=== PATIENT | male | born 1985 | race Caucasian/White ===

== ENCOUNTER 2016-05-25 17:49 | Emergency (ER) | payer BC ==
[2016-05-25 18:15] VITALS: BP 150/78
[2016-05-25] MEDS ORDERED: Benzocaine 20% Topical Spray UD MUCMEM ONE (18:29)
[2016-05-25] MEDS ORDERED: Lidocaine 2% Viscous Solution 15 ML Cup PO ONE (18:29)
--- NOTE | 2016-05-25 18:33 | EDM.PDOC ---
ED HPI GENERAL MEDICAL PROBLEM - General Chief Complaint: ENT Problem Stated Complaint: PT HAS TOOTHACHE Time Seen by Provider: 05/25/16 17:53 - History of Present Illness INITIAL COMMENTS - FREE TEXT/NARRATIVE: HISTORY AND PHYSICAL: History of present illness: The patient is a 30-year-old male with a history of asthma who presents with complaints of swelling of his right jaw and dental pain that has been going on for the last couple of days. The patient has a known dental problem there has been putting off getting that particular tooth fixed as he has been working on other teeth with a local dentist. He has appointment with his dentist in 2 weeks and he was doing well until this morning he woke up and it was terribly swollen. He was concerned about infection so he took some leftover penicillin that he had. Concerned about pain management. He has had no fever chills chest pain sore throat or shortness of breath or Review of systems: As per history of present illness and below otherwise all systems reviewed and negative. Past medical history: As per history of present illness and as reviewed below otherwise noncontributory. Surgical history: As per history of present illness and as reviewed below otherwise noncontributory. Social history: No reported history of drug or alcohol abuse. Family history: As per history of present illness and as reviewed below otherwise noncontributory. Physical exam: General: Well-developed well-nourished male who is nontoxic and speaking clearly and easily. Is visible swelling of the right side of his jaw. HEENT: Atraumatic, normocephalic, pupils reactive, negative for conjunctival pallor or scleral icterus, mucous membranes moist, throat clear, neck supple, nontender, trachea midline. There are several areas of dental disease the most noteworthy is in the premolar area on the lower right where there is a dental caries with some swelling in the surrounding but no fluctuance and there is tenderness in this region Lungs: Clear to auscultation with a fine expiratory wheeze appreciated bilaterally, breath sounds equal bilaterally, chest nontender. Heart: S1S2, regular rate and rhythm no overt murmurs. Abdomen: Soft, nondistended, nontender. NABS Genitourinary: Deferred. Rectal: Deferred. Extremities: Atraumatic, negative for cords or calf pain. Neurovascular unremarkable. Neuro: Awake, alert, oriented. Cranial nerves II through XII unremarkable. Cerebellum unremarkable. Motor and sensory unremarkable throughout. Exam nonfocal. Diagnostics: [] Therapeutics: Dental balls The patient states he has an inhaler at home and does not want the fine wheeze to be addressed here in the ER Impression: Dental pain/caries/early abscess Definitive disposition and diagnosis as appropriate pending reevaluation and review of above. Right Lower Tooth/Teeth Pain Score (Numeric/FACES): 7 - Related Data Allergies Allergy/AdvReac Type Severity Reaction Status Date / Time No Known Allergies Allergy Verified 05/25/16 18:15 Home Meds: Home Meds . [No Known Home Meds] 08/31/15 [History] Past Medical History - Past Health History Medical/Surgical History: Denies Medical/Surgical History - Infectious Disease History Infectious Disease History: Reports: Chicken pox Social & Family History - Family History Family Medical History: Noncontributory - Tobacco Use Smoking Status *Q: Current Every Day Smoker Years of Tobacco use: 10 Packs/Tins Daily: 1 Second Hand Smoke Exposure: Yes - Caffeine Use Caffeine Use: Reports: Energy drinks - Recreational Drug Use Recreational Drug Use: No ED ROS GENERAL - Review of Systems Review Of Systems: ROS reveals no pertinent complaints other than HPI. ED EXAM, GENERAL - Physical Exam Exam: See Below (See dictation) Course - Vital Signs Last Recorded V/S: Last Vital Signs Temp 36.4 C 05/25/16 18:13 Pulse 94 05/25/16 18:13 Resp 16 05/25/16 18:13 BP 150/78 H 05/25/16 18:13 Pulse Ox 94 L 05/25/16 18:13 - Orders/Labs/Meds Meds: Medications Discontinued Medications Generic Name Dose Route Start Last Admin Trade Name Kyle PRN Reason Stop Dose Admin Benzocaine 2 each 05/25/16 18:29 Hurricaine One 20% MUCMEM 05/25/16 18:30 ONETIME ONE Lidocaine HCl 15 ml 05/25/16 18:29 Xylocaine 2% Viscous PO 05/25/16 18:30 ONETIME ONE Departure - Departure Time of Disposition: 18:33 Disposition: Home, Self-Care 01 Condition: good Clinical Impression: Dental abscess, Dental caries extending into dentin Forms: ED Department Discharge Additional Instructions: The following information is given to patients seen in the emergency department who are being discharged to home. This information is to outline your options for follow-up care. We provide all patients seen in our emergency department with a follow-up referral. The need for follow-up, as well as the timing and circumstances, are variable depending upon the specifics of your emergency department visit. If you don't have a primary care physician on staff, we will provide you with a referral. We always advise you to contact your personal physician following an emergency department visit to inform them of the circumstance of the visit and for follow-up with them and/or the need for any referrals to a consulting specialist. The emergency department will also refer you to a specialist when appropriate. This referral assures that you have the opportunity for followup care with a specialist. All of these measure are taken in an effort to provide you with optimal care, which includes your followup. Under all circumstances we always encourage you to contact your private physician who remains a resource for coordinating your care. When calling for followup care, please make the office aware that this follow-up is from your recent emergency room visit. If for any reason you are refused follow-up, please contact the [facility] emergency department at and ask to speak to the emergency department charge nurse. [facility] Primary care- Internal Medicine and Family [address] [address] Please followup with your dentist as scheduled and apply ice to face to help with the swelling. Please use antibiotics and pain meds as directed and prescribed. Please use the dental balls were given here in the ER as shown 2 by nursing and return to ER as needed and as discussed.
== END 2016-05-25 18:50 | disposition home or self-care (01) ==
LOC: MW.ED 17:49
DX: K04.7 Periapical abscess without sinus (principal); K02.9 Dental caries, unspecified; F17.210 Nicotine dependence, cigarettes, uncomplicated
CPT/HCPCS: 99282; A9270

== ENCOUNTER 2024-08-21 03:00 | Emergency (ER) | payer BC ==
[2024-08-21 03:09] VITALS: BP 140/97; PULSE 104
[2024-08-21] MEDS: Ketorolac 30 MG/ML SDV IM ONE (03:38)
[2024-08-21] MEDS: Orphenadrine 60 MG/2 ML Inj IM ONE (03:38)
== END 2024-08-21 04:25 | disposition home or self-care (01) ==
LOC: MW.ED 03:00
DX: M79.602 Pain in left arm (principal); I10 Essential (primary) hypertension; E11.9 Type 2 diabetes mellitus without complications; Z79.899 Other long term (current) drug therapy
CPT/HCPCS: 73060; 96372; 99283; J1885; J2360